=== PATIENT | female | born 1970 | race Caucasian/White ===

== ENCOUNTER 2016-08-02 14:21 | Emergency (ER) | payer OTHER ==
[2016-08-02] MEDS ORDERED: CLINDAMYCIN 150 MG CAPSULE PO STA (16:13)
[2016-08-02] MEDS ORDERED: CLINDAMYCIN 150 MG CAPSULE PO ONE (16:25)
--- NOTE | 2016-08-02 16:37 | ED Physician Documentation ---
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 : None HEENT: None Psych: None Musculoskeletal: None Derm: None - Past Surgical History Past Surgical History: Yes Ortho: Carpal Tunnel surgery - Present Medications Home Medications: Ambulatory Orders Medication Instructions Recorded Confirmed Levothyroxine Sodium [Synthroid] 50 mcg PO DAILY 03/26/13 03/13/14 Venlafaxine [Effexor] 75 mg PO BID 03/26/13 03/13/14 Hydrocodone/Acetaminophen [[place] 1 each PO Q6H PRN #20 tablet 06/10/15 5-325 Tablet] Ibuprofen [Motrin] 600 mg PO TID #20 tab 06/10/15 Ondansetron HCl [Zofran] 4 mg PO Q6H PRN #20 tablet 06/10/15 Clindamycin [Cleocin] 300 mg PO Q6H 5 Days 08/02/16 - Allergies Allergies/Adverse Reactions: Allergies Allergy/AdvReac Type Severity Reaction Status Date / Time acetaminophen [From Vicodin] Allergy Hives Verified 08/02/16 14:32 hydrocodone bitartrate * Allergy Hives Verified 08/02/16 14:32 [From Vicodin] latex Allergy Rash Verified 08/02/16 14:32 Penicillins Allergy throat Verified 08/02/16 14:32 swelling - Social History Does the pt smoke?: No Smoking Status: Never smoker Does the pt drink ETOH?: Yes Does the pt have substance abuse?: No - Immunizations Immunizations are current?: Yes - POLST Patient has POLST: No PD ED PE NORMAL - Vitals Vital signs reviewed: Yes - Derm Derm: Other (small falp avuslion and macerated sup lac ajacent to nail of L great toe, MSV intact) - Extremities Extremities: Other (no bony TTP) Results - Vitals Vitals: Vital Signs - 24 hr 08/02/16 14:28 Temperature 36.3 C L Heart Rate 63 Respiratory 14 Rate Blood Pressure 132/80 H O2 Saturation 99 Oxygen O2 Source Room air PD MEDICAL DECISION MAKING - ED course ED course: toe carefully irrigated, tissue flap approximated, dermabonded in place Departure - Departure Disposition: 01 Home, Self Care Clinical Impression: Toe laceration Qualifiers: Encounter type: initial encounter Toe: unspecified toe Damage to nail status: without damage Foreign body presence: without foreign body Laterality: left Qualified Code(s): S91.119A - Laceration without foreign body of unspecified toe without damage to nail, initial encounter Condition: Good Instructions: ED Laceration Ext Skin Glue Prescriptions: Clindamycin [Cleocin] 300 mg PO Q6H 5 Days Comments: Follow up with your PMD for a wound check in the next three days Return if worse Please follow up with your PMD about your blood pressure - it was high today Forms: Activity restrictions
[2016-08-02] MEDS ORDERED: LIDOCAINE-EPINEPH-TETRACAINE 3 ML SYRINGE TOP STA (16:49)
[2016-08-02] MEDS ORDERED: LIDOCAINE-EPINEPH-TETRACAINE 3 ML SYRINGE TOP ONE (16:57)
[2016-08-02 18:31] VITALS: BP 154/80
== END 2016-08-02 18:31 | disposition home or self-care (01) ==
LOC: ED 14:21
DX: S91.112A Laceration without foreign body of left great toe without damage to nail, initial encounter (principal); W20.8XXA Other cause of strike by thrown, projected or falling object, initial encounter; Y92.019 Unspecified place in single-family (private) house as the place of occurrence of the external cause; C74.90 Malignant neoplasm of unspecified part of unspecified adrenal gland; E11.9 Type 2 diabetes mellitus without complications; E03.9 Hypothyroidism, unspecified; K21.9 Gastro-esophageal reflux disease without esophagitis
CPT/HCPCS: 12001; 99283; A9270

== ENCOUNTER 2016-11-13 08:00 | Outpatient (CLI) | payer OTHER ==
[2016-11-20 16:21] LABS: CREATININE, URINE 1.39 g/24 h (0.63-2.50)
== END 2016-11-13 23:59 | disposition home or self-care (01) ==
LOC: LAB.F 08:00
PROVIDERS: ATTEND Internal Medicine Endocrinology, Diabetes & Metabolism
DX: C74.00 Malignant neoplasm of cortex of unspecified adrenal gland (principal)
CPT/HCPCS: 82530; 82570